=== PATIENT | female | born 1995 | race Caucasian/White ===

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

== ENCOUNTER 2017-01-08 20:20 | Emergency (ER) | payer MEDICAID ==
[~2017-01-08] VITALS: Ht 121.9 cm; Wt 32.0 kg
[~2017-01-08 20:20] MED LIST changes: -ACET325T33 PO; -CEPH-443 PO; -CLIN-73 PO; +LORA10TA3 PO; -ONDA4TAB8 PO
[2017-01-08 20:22] VITALS: Ht 121.9 cm; Wt 32.0 kg
--- NOTE | 2017-01-08 22:07 | ERD ---
ER Documentation Chief Complaint Date/Time DATE: 01/08/17 TIME: 22:01 Chief Complaint left ear pain x 1 day HPI This 21-year-old female presents to emergency department today for otalgia, patient brought in by mother who does the majority of speaking. Patient is reluctant to talk to nurse practitioner but will answer simple questions. Patient reports symptoms for 3 days. Denies change in hearing. Or discharge coming from the ear. Patient denies sore throat, nasal congestion, fever or chills. Patient has a hearing aid in her right ear. ROS All systems reviewed and are negative except as per history of present illness. Medications Home Meds Active Scripts Ibuprofen* (Ibuprofen*) 400 Mg Tablet, 400 MG PO Q6H Y for PAIN, #20 TAB Prov:DANDRE,BECKY 01/08/17 Amoxicillin/Potassium Clav (Amox-Clav 875-125 mg Tablet) 875-125 mg Tab, 1 TAB PO BID for 10 Days, #20 TAB Prov:DANDRE,BECKY 01/08/17 Reported Medications Loratadine* (Loratadine*) 10 Mg Tablet, 10 MG PO DAILY, #30 TAB 10/02/16 Allergies Allergies: Coded Allergies: No Known Allergy (Verified , 10/02/16) PMhx/Soc History of Surgery: Yes (REED KNEE SX, REED HIP SX, REED EAR TUBES IMPLANTS ) Anesthesia Reaction: No Hx Neurological Disorder: No Hx Respiratory Disorders: No Hx Cardiac Disorders: No Hx Psychiatric Problems: No Hx Miscellaneous Medical Probl: Yes (ACHONDRPLASTIC DWARFISM ) Hx Alcohol Use: No Hx Substance Use: No Hx Tobacco Use: No Smoking Status: Never smoker Physical Exam Vitals Vital Signs Date Time Temp Pulse Resp B/P Pulse Ox O2 Delivery O2 Flow Rate FiO2 01/08/17 20:22 99.2 85 20 124/82 100 Vitals stable, triage notes reviewed Physical Exam Const: No acute distress, Head: Atraumatic Eyes: Normal Conjunctiva, PERRLA, EOMI ENT: Right ear with hearing aid removed, tympanic membrane bright angry red, tympanic membrane retracted, nonbulging, auditory canal clear. Left tympanic membrane translucent, landmarks visualized, auditory canals clear. Nasal mucosa moist, septum midline, no maxillary or frontal sinus tenderness, pharynx is pink, uvula midline, rises and falls with pronation, tonsils +2, without exudate or mucus, Neck: Full range of motion..~ No meningismus. Resp: Chest rises and falls symmetrically, clear to auscultation bilaterally, no respiratory distress Cardio: Abd: Skin: Back: Ext: Neur: Awake and alert Psych: Angry mood and Affect Procedures/MDM This 21-year-old female brought in by her mother today for evaluation of otalgia. Patient is quiet, reluctant to answer questions, patient appears with a angry affect, wears hearing aid in right ear. Has no other upper respiratory complaints at this time, mastoiditis,cholesteatoma is not suspected. Sickle exam findings and history do not support diagnosis. Patient likely has otitis media, will be treated with Augmentin and Motrin for pain. Return to emergency room if symptoms fail to improve in 24 hours. I feel the patient is stable for discharge at this time with outpatient management and follow up with primary care physician. I have discussed results, examination findings, the treatment plan with the patient and family present prior to discharge. Indications for emergent reevaluation, side effects of medication were also discussed. All questions were answered. Patient verbalizes understanding and agrees with plan of care. Departure Diagnosis: Primary Impression: Otitis media Otitis media type: suppurative Laterality: right Chronicity: unspecified Qualified Code: H66.41 - Suppurative otitis media of right ear, unspecified chronicity Condition: Good Patient Instructions: Otitis Media, Abx Tx (Adult) Additional Instructions: Thank you for for coming to [facility] for your care today. Please ask your nurse or provider if you have questions about your care today and do not leave until all your questions have been answered. Please use any medications given as directed and follow-up with your doctor (or the doctor you were referred to) in the next 2-3 days. If you do not have a primary care doctor you may follow up at the [facility] (listed below). You may also use motrin and tylenol as needed for fever and/or pain unless instructed otherwise by your provider or nurse. Indications for more urgent follow-up have been discussed, but you may return to the Emergency Department at ANY time for any worrisome or worsening symptoms. If you have abdominal pain, please know that no test or exam you received is perfect and you should follow up within 8 hours for continued pain. If you had any imaging studies today, such as an X-Ray or CT Scan, these studies will be reviewed later by a radiologist. You will be called if there are important findings that were not identified today, so make sure the contact information you provided at registration is correct. If you received any narcotic pain control medicine today, such as Vicodin, Morphine or Dilaudid, your coordination and judgment may be affected for a number of hours. Please do not drive or operate heavy machinery, and you may want someone to assist you at home. If you were given a prescription for narcotic medication, be aware that it is very addictive- use sparingly and only if necessary. BECKY AMOS January 08, 2017 22:07
[2017-01-08] MEDS ORDERED: AMOX1TAB10 PO (22:08)
[2017-01-08] MEDS ORDERED: IBUP400T22 PO (22:08)
== END 2017-01-08 22:20 | disposition home or self-care (01) ==
LOC: FTE 20:20
DX: H66.41 Suppurative otitis media, unspecified, right ear (principal)
CPT/HCPCS: 99283

== ENCOUNTER 2018-11-02 18:04 | Emergency (ER) | payer MEDICAID, OTHER ==
[~2018-11-02] VITALS: Wt 33.0 kg
[~2018-11-02 18:04] MED LIST changes: +AMOX1TAB10 PO; +IBUP-1541 PO
--- NOTE | 2018-11-03 02:15 | ERD ---
ER Documentation Chief Complaint Chief Complaint SORE THROAT WITH RIGHT EAR PAIN & SUPRA-PUBIC BUMP WITH REDNESS/PAIN HPI This is a 22-year-old female who was brought in by mother here in emergency department with complaints of sore throat, right ear pain, suprapubic "bump." Patient uses hearing aid at home. LMP: Denies headache, head injury, loss of consciousness, dizziness, neck pain, neck stiffness, throat pain, difficulty swallowing, difficulty breathing lying flat, shoulder pain, chest pain, back pain, abdominal pain, nausea, vomiting, constipation, diarrhea, urinary symptoms, or possibility being , loss of bowel and bladder control, trauma, injury, falls, difficulty walking due to pain, numbness or tingling sensation, calf pain, recent travel, recent major surgery in the last 3 weeks, calf pain, recent long travel, recent exposure to any illness, recent antibiotic use in the last 3 months, fever, chills, seizures. Past medical history: Surgical history: Social: Denies smoking, use of alcoholic beverages, use of illegal drugs. ROS All systems reviewed and are negative except as per history of present illness. Medications Home Meds Active Scripts Ibuprofen* (Motrin*) 400 Mg Tab, 400 MG PO Q6H PRN for PAIN AND OR ELEVATED TEMP, #20 TAB Prov:MARIOILABANANITAAR F 11/03/18 Cephalexin* (Keflex*) 500 Mg Capsule, 500 MG PO QID for 5 Days, CAP Prov:PASILABAN,KLAR F 11/03/18 Carbamide Peroxide* (Debrox*) 6.5% -15 Ml Drops, 10 DROP RIGHT EAR BID for 4 Days, EA Prov:PASILABANANITAAR F 11/03/18 Ibuprofen* (Ibuprofen*) 400 Mg Tablet, 400 MG PO Q6H PRN for PAIN, #20 TAB Prov:DANDRE,BECKY 01/08/17 Amoxicillin/Potassium Clav (Amox-Clav 875-125 mg Tablet) 875-125 mg Tab, 1 TAB PO BID for 10 Days, #20 TAB Prov:DANDRE,BECKY 01/08/17 Reported Medications Loratadine* (Loratadine*) 10 Mg Tablet, 10 MG PO DAILY, #30 TAB 10/02/16 Allergies Allergies: Coded Allergies: No Known Allergy (Verified , 10/02/16) PMhx/Soc History of Surgery: Yes (REED KNEE SX, REED HIP SX, REED EAR TUBES IMPLANTS ) Anesthesia Reaction: No Hx Neurological Disorder: No Hx Respiratory Disorders: No Hx Cardiac Disorders: No Hx Psychiatric Problems: No Hx Miscellaneous Medical Probl: Yes (ACHONDRPLASTIC DWARFISM ) Hx Alcohol Use: No Hx Substance Use: No Hx Tobacco Use: No Physical Exam Vitals Physical Exam Const: No acute distress Head: Atraumatic Eyes: Normal Conjunctiva ENT: Normal External Ears, Nose and Mouth. Right ear: 100% earwax (cerumen impaction). No mastoid tenderness. Left ear: 60% earwax. TMs not erythematous. No bleeding. No discharge. No mastoid tenderness. Nose: There is no frontal or maxillary sinus tenderness palpation. Throat: Uvula is in midline and nondisplaced. Tonsils are +1 bilaterally without redness without exudates. Tolerating secretions. Patent airway. Neck: Full range of motion. No meningismus. No nuchal rigidity. No signs of meningeal irritation. Resp: Clear to auscultation bilaterally Cardio: Regular rate and rhythm, no murmurs Abd: Soft, non tender, non distended. Normal bowel sounds Skin: No petechiae or rashes. Circular swelling to the suprapubic area measuring approximately 2 cm in diameter (no fluctuance). Examined with female java development manager, Eduardo TATE. Back: No midline or flank tenderness Ext: No cyanosis, or edema Neur: Awake and alert. No new neurological deficits as confirmed with mother. Psych: Normal Mood and Affect Procedures/MDM Diagnostic tests: Clinical exam. Treatment: Not applicable. Re-evaluation: Not in distress. Differential diagnosis I have low suspicion for deep space infection, mastoiditis, meningitis, peritonsillar abscess, sepsis. Final diagnosis: Cellulitis/folliculitis. Cerumen impaction. Prescription: Debrox. Motrin. Keflex. Follow-up with PCP in the next 24-48 hours. Come back here in the emergency department for any new symptoms or any worsening symptoms. All questions and concerns were answered. Mother verbalized understanding and agreed with plan of care. Hemodynamically stable on discharge. Departure Diagnosis: Primary Impression: Cellulitis Additional Impressions: Folliculitis Cerumen impaction Condition: Stable Additional Instructions: Follow-up with PCP in the next 24-48 hours. Come back here in the emergency department for any new symptoms or any worsening symptoms. PETROS CALIX Nov 03, 2018 02:15
[2018-11-03] MEDS ORDERED: IBUP-1561 PO (02:17)
[2018-11-03] MEDS ORDERED: CEPH-443 PO (02:17)
[2018-11-03] MEDS ORDERED: CARB-155 RIGHT EAR (02:17)
[2018-11-03 02:53] VITALS: BP 110/70; PULSE 88; RESP 16
== END 2018-11-03 02:53 | disposition home or self-care (01) ==
LOC: FTE 18:04
DX: H61.21 Impacted cerumen, right ear (principal); L03.311 Cellulitis of abdominal wall; L73.9 Follicular disorder, unspecified
CPT/HCPCS: 99283